=== PATIENT | male | born 1990 | race Caucasian/White ===

== ENCOUNTER 2017-01-09 17:18 | Emergency (ER) | payer OTHER ==
[2017-01-09] MEDS ORDERED: RX INFO: IV CONTRAST WAS GIVEN 1 EACH MISC MISCELLANE PRN ×2 (18:19→18:20)
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
[2017-01-09 18:33] VITALS: RESP 18
[2017-01-09 18:46] LABS: Basophils # (A) 0.1 k/uL (0-0.2); Basophils % (A) 1 %; CH 29.8; CHCM 35.2; Eosinophils # (A) 0.4 k/uL (0-0.7); Eosinophils % (A) 3 %; HCT 47.9 % (39.0-53.0); HDW 2.93; HGB 16.7 gm/dL (13.0-17.5); Luc # (Auto) 0.15; Luc % (Auto) 1; Lymphocytes % (A) 16 %; MCH 29.6 pg (25.0-35.0); MCHC 34.8 g/dL (31.0-37.0); MCV 85.1 fL (80.0-100.0); Mean Platelet Volume 7.6; Monocytes # (A) 0.5 k/uL (0-1.0); Monocytes % (A) 4 %; Neutrophils # (A) 9.1 k/uL (1.3-7.7); Neutrophils % (A) 75 %; RBC 5.63 m/uL (4.30-5.90); RDW 13.5 % (11.5-15.5); WBC 12.1 k/uL (3.8-10.6); WBC (Perox) 11.46
[2017-01-09 18:57] LABS: ALT 43 U/L (21-72); AST 29 U/L (17-59); Alcohol <10 mg/dL; Alkaline Phosphatase 79 U/L (38-126); Anion Gap 12 mmol/L; Blood Urea Nitrogen 5 mg/dL (9-20); Calcium 9.4 mg/dL (8.4-10.2); Carbon Dioxide 22 mmol/L (22-30); Chloride 108 mmol/L (98-107); Glucose 103 mg/dL (74-99); Non-African American GFR(MDRD) >60 (>60 ml/min/1.73 sqM); Potassium 3.6 mmol/L (3.5-5.1); Sodium 142 mmol/L (137-145); Total Bilirubin 1.4 mg/dL (0.2-1.3); Total Protein 7.8 g/dL (6.3-8.2)
[2017-01-09 18:59] LABS: Partial Thromboplastin Time 23.9 sec (22.0-30.0); Prothrombin Time 10.2 sec (9.0-12.0)
--- NOTE | 2017-01-09 19:26 | CT ---
EXAMINATION TYPE: CT brain chiquis prasad DATE OF EXAM: 01/09/2017 COMPARISON: NONE HISTORY: MCA yesterday. Head, neck and abdominal pain. CT DLP: 1500.7 mGycm, Automated exposure control for dose reduction was used. CONTRAST: Patient injected with 0 mL of Omnipaque 300. CT of the brain is performed utilizing 3 mm thick sections through the posterior fossa and 3 mm thick sections through the remaining calvarium. Study is performed within 24 hours of arrival to the hospital. No abnormal hyperdensity is present to suggest an acute intracranial hemorrhage. No mass lesion is evident. No acute infarcts are evident. Ventricles and sulci are appropriate for the patient age. Paranasal sinuses and mastoid air cells within the [id number] are clear. IMPRESSIONS: 1. No acute intracranial process. CT cervical spine. COMPARISON: None CT of the cervical spine is performed in the axial plane at 2 mm thick sections. Reconstructed image s in the coronal, and sagittal plane are reviewed on the computer. No acute fractures are evident. Vertebral body alignment is normal. Disc heights are preserved. Vertebral body heights are preserved. No spinal canal stenosis is evident. No neural foraminal stenosis is evident. IMPRESSIONS: 1. Normal CT cervical spine.
--- NOTE | 2017-01-09 19:30 | CT ---
EXAMINATION TYPE: CT ChestAbdPelvis w con DATE OF EXAM: 01/09/2017 INDICATION: [facility] yesterday. Head, neck and abdominal pain. COMPARISON: NONE CT DLP: 1500.7 mGycm CONTRAST: Performed without Oral Contrast and with IV Contrast, patient injected with 100 mL of Omnipaque 300. TECHNIQUE: Axial images at 5 mm thick sections. Reconstructed images in the coronal plane. Delayed images through the kidneys. FINDINGS: CT CHEST: Portion of the thyroid visualized is normal. No suspicious lung nodules or focal infiltrates are present. No pulmonary contusions are evident. No pneumothorax is evident. No obvious displaced rib fractures are identified. No enlarged mediastinal or hilar adenopathy is evident. The ascending aorta diameter at the level of the main pulmonary artery is 4.0 cm. The main pulmonary artery diameter at the bifurcation is 3.[address] ABDOMEN: Liver: Normal Spleen: Normal Pancreas: Normal Adrenal glands: The adrenal glands are normal. Gallbladder: Normal Kidneys: No masses are evident. No hydronephrosis is present. No cysts are present. No free fluid is within the abdomen. Aorta: Normal Inferior vena cava: Normal. CT PELVIS: Loops of bowel within the abdomen and pelvis are normal. Study is without oral contrast limiting evaluation. No free fluid is within the pelvis. Appendix: Normal as visualized. Urinary bladder: Normal. Genitourinary structures: Prostate is unremarkable. Osseous structures: No suspicious lytic or sclerotic lesions. IMPRESSIONS: 1. No acute posttraumatic changes CT chest abdomen pelvis
[2017-01-09 20:03] VITALS: BP 121/73; PULSE 76; TEMP 98.1
[2017-01-09 20:22] LABS: Appearance,Urine Clear (Clear); Bilirubin,Urine Negative (Negative); Glucose,Urine (UA) Negative (Negative); Ketones,Urine Negative (Negative); Leukocyte Esterase,Urine Negative (Negative); Nitrite,Urine Negative (Negative); Protein,Urine Negative (Negative); Specific Gravity,Urine 1.022 (1.001-1.035); UA Billing (MACRO vs. MICRO) CHEM
== END 2017-01-09 20:32 | disposition home or self-care (01) ==
LOC: EC 17:18
DX: S30.810A Abrasion of lower back and pelvis, initial encounter (principal); S20.412A Abrasion of left back wall of thorax, initial encounter; S09.90XA Unspecified injury of head, initial encounter; I71.2 Thoracic aortic aneurysm, without rupture; F17.200 Nicotine dependence, unspecified, uncomplicated; V86.09XA Driver of other special all-terrain or other off-road motor vehicle injured in traffic accident, initial encounter; Y92.410 Unspecified street and highway as the place of occurrence of the external cause
CPT/HCPCS: 36415; 80053; 85025; 85610; 85730; 81003; 80306; 80320; 72125; 70450; 71260; 74177; 99284; Q9967

== ENCOUNTER 2018-08-11 11:35 | Emergency (ER) | payer OTHER ==
[2018-08-11 11:50] VITALS: BP 130/86; PULSE 77; RESP 18; TEMP 98.2
[2018-08-11 14:14] LABS: Amphetamine Screen,Urine Not Detected (NotDetected); Barbiturate Screen,Urine Not Detected (NotDetected); Benzodiazepines Screen,Urine Not Detected (NotDetected); Cocaine Screen,Urine Not Detected (NotDetected); Methadone Screen, Urine Not Detected (NotDetected); Opiate Screen,Urine Not Detected (NotDetected); Oxycodone Screen, Urine Not Detected (NotDetected); Phencyclidine Screen,Urine Not Detected (NotDetected); Tricyclic Antidepressant,Urine Not Detected (NotDetected); Urn Cannabinoid Scrn Not Detected (NotDetected)
--- NOTE | 2018-08-11 14:42 | ED ---
Psych HPI - General Chief Complaint: Psychiatric Symptoms Stated Complaint: Petitioned Time Seen by Provider: 08/11/18 11:53 Source: patient, RN notes reviewed, old records reviewed Mode of arrival: ambulatory - History of Present Illness Initial Comments: This is a 27-year-old male the ER for evaluation by his psychiatry. Patient is brought in for evaluation of psychiatric brief illness. Patient denies recent drug abuse, is going to divorce did see with another man that causes him to be very emotional he did post on Facebook with no syncope was thinking about committing suicide or something of that nature. Patient resents for psychiatric evaluation currently states she is he is depressed he is angry but no longer suicidal patient was brought in by PD for evaluation MD Complaint: suicidal ideation, feels depressed -: unknown Associated Psychiatric Symptoms: depression History of same: Yes Quality: getting worse (Secondary to life stressor) Improves With: none Worsens With: none Context: significant life stressor Associated Symptoms: denies other symptoms Treatments Prior to Arrival: none If Self Harm: has plan - Related Data Home Medications Medication Instructions Recorded Confirmed Acetaminophen [Tylenol Extra 1,000 mg PO Q6H PRN 08/11/18 08/11/18 Strength] Allergies Allergy/AdvReac Type Severity Reaction Status Date / Time No Known Allergies Allergy Verified 08/11/18 12:28 Review of Systems ROS Statement: Those systems with pertinent positive or pertinent negative responses have been documented in the HPI. ROS Other: All systems not noted in ROS Statement are negative. Past Medical History Past Medical History: No Reported History Additional Past Medical History / Comment(s): AAA History of Any Multi-Drug Resistant Organisms: None Reported Past Surgical History: Appendectomy Past Psychological History: No Psychological Hx Reported Smoking Status: Current every day smoker Past Alcohol Use History: None Reported Past Drug Use History: None Reported General Exam Limitations: no limitations General appearance: alert, in no apparent distress, anxious Head exam: Present: atraumatic, normocephalic, normal inspection Eye exam: Present: normal appearance, PERRL, EOMI. Absent: scleral icterus, conjunctival injection, periorbital swelling ENT exam: Present: normal exam, mucous membranes moist Neck exam: Present: normal inspection. Absent: tenderness, meningismus, lymphadenopathy Respiratory exam: Present: normal lung sounds bilaterally. Absent: respiratory distress, wheezes, rales, rhonchi, stridor Cardiovascular Exam: Present: regular rate, normal rhythm, normal heart sounds. Absent: systolic murmur, diastolic murmur, rubs, gallop, clicks GI/Abdominal exam: Present: soft, normal bowel sounds. Absent: distended, tenderness, guarding, rebound, rigid Extremities exam: Present: normal inspection, full ROM, normal capillary refill. Absent: tenderness, pedal edema, joint swelling, calf tenderness Back exam: Present: normal inspection Neurological exam: Present: alert, oriented X3, CN II-XII intact Psychiatric exam: Present: normal affect, normal mood Skin exam: Present: warm, dry, intact, normal color. Absent: rash Course Vital Signs 08/11/18 11:47 Temperature 98.2 F Pulse Rate 77 Respiratory 18 Rate Blood Pressure 130/86 O2 Sat by Pulse 99 Oximetry - Reevaluation(s) Reevaluation #1: 08/11/18 14:41 Medically clear for psychiatric evaluation Reevaluation #2: 08/11/18 14:41 Patient was seen and evaluated with psychiatry here in the emergency room, patient does have CT brain, patient no longer wants to commit suicide. Medical Decision Making - Medical Decision Making 27 male to ER for evaluation. Patient presents ER for evaluation of psychiatric illness, patient is going through divorce and received saw his ex- with another man. This causes him to be suicidal want to kill himself. He does have mom at bedside is going to take home. Denies significant drug or alcohol abuse today. - Lab Data Lab Results 08/11/18 Range/Units 13:40 Urine Opiates Screen Not Detected (NotDetected) Ur Oxycodone Screen Not Detected (NotDetected) Urine Methadone Screen Not Detected (NotDetected) Ur Propoxyphene Screen Not Detected (NotDetected) Ur Barbiturates Screen Not Detected (NotDetected) U Tricyclic Antidepress Not Detected (NotDetected) Ur Phencyclidine Scrn Not Detected (NotDetected) Ur Amphetamines Screen Not Detected (NotDetected) U Methamphetamines Scrn Not Detected (NotDetected) U Benzodiazepines Scrn Not Detected (NotDetected) Urine Cocaine Screen Not Detected (NotDetected) U Marijuana (THC) Screen Not Detected (NotDetected) Disposition Clinical Impression: Adjustment reaction, Depression Disposition: HOME SELF-CARE Condition: Good Instructions: Grief and Loss (ED) Is patient prescribed a controlled substance at d/c from ED?: No Referrals: None,Stated [Primary Care Provider] - 1-2 days
== END 2018-08-11 14:59 | disposition home or self-care (01) ==
LOC: EC 11:35
DX: F32.9 Major depressive disorder, single episode, unspecified (principal); F43.20 Adjustment disorder, unspecified; F17.200 Nicotine dependence, unspecified, uncomplicated
CPT/HCPCS: 80306; 99285

== ENCOUNTER 2020-08-14 15:36 | Emergency (ER) | payer SELFPAY ==
[2020-08-14 15:50] VITALS: RESP 18; TEMP 98.3
--- NOTE | 2020-08-14 16:19 | ED ---
General Adult HPI - General Chief complaint: Urogenital Stated complaint: Groin injury Time Seen by Provider: 08/14/20 16:03 Source: patient Mode of arrival: ambulatory Limitations: no limitations - History of Present Illness Initial comments: Dictation was produced using [employer] dictation software. please excuse any grammatical, word or spelling errors. This patient was cared for during a federal and state declared state of emergency secondary to Covid 19 Chief Complaint: 29-year-old male presents today with testicular mass History of Present Illness: Patient is a 29-year-old male he has no significant past medical history. Patient states that over the last week he is noted he had inferior testicular masses. States that there is very unlikely possibility has sexually transmitted disease because he hasn't been sexually active recently and he only has one partner. Patient states she does have mild dysuria. States that the masses her bilateral and on the inferior aspect of the scrotum. Patient has no history of medical problems. Takes no medications on a regular basis. Patient has history of vasectomy several months ago. The ROS documented in this emergency department record has been reviewed and confirmed by me. Those systems with pertinent positive or negative responses have been documented in the HPI. All other systems are other negative and/or noncontributory. PHYSICAL EXAM: General Impression: Alert and oriented x3, not in acute distress HEENT: Normocephalic atraumatic, extra-ocular movements intact, pupils equal and reactive to light bilaterally, mucous membranes moist. Cardiovascular: Heart regular rate and rhythm Chest: Able to complete full sentences, no retractions, no tachypnea Abdomen: abdomen soft, non-tender, non-distended, no organomegaly Musculoskeletal: Pulses present and equal in all extremities, no peripheral edema Motor: no focal deficits noted Neurological: CN II-XII grossly intact, no focal motor or sensory deficits noted Skin: Intact with no visualized rashes Psych: Normal affect and mood : Scrotum is intact without any erythema or induration, there is a palpable 1 x 1 cm rubbery textured mass on the inferior portion of each testicle ED course: 29-year-old male presents with 7 days of suspicious testicular masses. Vital signs igns upon arrival are within acceptable limits. Scrotal ultrasound shows no evidence of testicular torsion or mass. He does have bilateral epididymal cysts. Cyst on the right measures 0.8 cm cyst on the left measures 1.4 cm. Urinalysis shows greater then 182 white blood cells, 52 red blood cells. Clinical presentation concerning for urinary tract infection. Pending STD panel. Scrotal ultrasound did not suggest epididymitis. Cyst may be secondary to vasectomy. Patient given 250 mg of IM ceftriaxone. He is also given a ten-day prescription for Levaquin. Given referral to urology. - Related Data Home Medications Medication Instructions Recorded Confirmed Acetaminophen [Tylenol Extra 1,000 mg PO Q6H PRN 08/11/18 08/11/18 Strength] Previous Rx's Medication Instructions Recorded Levofloxacin [Levaquin] 500 mg PO DAILY 10 Days #10 tab 08/14/20 Allergies Allergy/AdvReac Type Severity Reaction Status Date / Time No Known Allergies Allergy Verified 08/14/20 15:47 Review of Systems ROS Statement: Those systems with pertinent positive or pertinent negative responses have been documented in the HPI. ROS Other: All systems not noted in ROS Statement are negative. Past Medical History Past Medical History: No Reported History Additional Past Medical History / Comment(s): AAA History of Any Multi-Drug Resistant Organisms: None Reported Past Surgical History: Appendectomy Past Psychological History: No Psychological Hx Reported Smoking Status: Current every day smoker Past Alcohol Use History: None Reported Past Drug Use History: None Reported General Exam Limitations: no limitations Course Vital Signs 08/14/20 08/14/20 15:48 16:50 Temperature 98.3 F Pulse Rate 87 81 Respiratory 18 18 Rate Blood Pressure 137/89 127/89 O2 Sat by Pulse 99 98 Oximetry Medical Decision Making - Lab Data Lab Results 08/14/20 Range/Units 16:22 Urine Color Yellow Urine Appearance Cloudy (Clear) Urine pH 5.5 (5.0-8.0) Ur Specific [place] 1.023 (1.001-1.035) Urine Protein Trace H (Negative) Urine Glucose (UA) Negative (Negative) Urine Ketones Negative (Negative) Urine Blood Moderate H (Negative) Urine Nitrite Negative (Negative) Urine Bilirubin Negative (Negative) Urine Urobilinogen 2.0 (<2.0) mg/dL Ur Leukocyte Esterase Large H (Negative) Urine RBC 52 H (0-5) /hpf Urine WBC >182 H (0-5) /hpf Urine Bacteria Rare H (None) /hpf Urine Mucus Rare H (None) /hpf Disposition Clinical Impression: Scrotal mass, UTI (urinary tract infection) Disposition: HOME SELF-CARE Condition: Good Instructions (If sedation given, give patient instructions): Urinary Tract Infection in Men (ED) Prescriptions: Levofloxacin [Levaquin] 500 mg PO DAILY 10 Days #10 tab Is patient prescribed a controlled substance at d/c from ED?: No Referrals: Adonis Barclay MD [STAFF PHYSICIAN] - 1-2 days Time of Disposition: 17:14
[2020-08-14 16:40] LABS: Appearance,Urine Cloudy (Clear); Bacteria,Urine Rare /hpf; Bilirubin,Urine Negative (Negative); Blood,Urine Moderate (Negative); Color,Urine Yellow; Glucose,Urine (UA) Negative (Negative); Ketones,Urine Negative (Negative); Leukocyte Esterase,Urine Large (Negative); Mucus,Urine Rare /hpf; Nitrite,Urine Negative (Negative); PH, Urine 5.5 (5.0-8.0); Protein,Urine Trace (Negative); RBC,Urine 52 /hpf (0-5); Specific Gravity,Urine 1.023 (1.001-1.035); WBC,Urine >182 /hpf (0-5)
--- NOTE | 2020-08-14 17:01 | US ---
EXAMINATION TYPE: US scrotum with doppler. Grayscale and color Doppler Duplex imaging performed of sarah curiel scrotum. DATE OF EXAM: 08/14/2020 COMPARISON: NONE CLINICAL HISTORY: scrotal masses. Patient feels palpable lump bilaterally EXAM MEASUREMENTS: TESTICLES: Right Testicle: 4.5 x 2.0 x 2.9 cm Left Testicle: 4.8 x 2.1 x 2.9 cm EPIDIDYMIS HEAD: Right Epididymis: 1.2 cm Left Epididymis: 1.3 cm Doppler performed to assess for testicular vascularity; good bilateral color flow and waveforms are s een. There is no evidence of testicular torsion. Presence of hydroceles: Small hydroceles bilaterally. Presence of varicoceles: Yes, inferior to left testicle Bilateral epididymal cysts, left greater than right. Right epididymal cyst measures 0.8 cm. Left epid idymal cyst measures 1.4 cm IMPRESSION: No evidence of testicular torsion or mass. Small bilateral hydroceles. Small left-sided varicocele. Multiple epididymal cysts.
[2020-08-14] MEDS ORDERED: cefTRIAXone 250 MG VIAL IM STA (17:10)
[2020-08-14 17:35] VITALS: BP 136/94; PULSE 83
[2020-08-16 15:57] LABS: C. trachomatis,PCR Negative (Neg,Equiv); Chlamydia trachomatis Source Urine; N. gonorrhoeae,PCR Positive (Neg,Equiv); Neisseria Source Urine
== END 2020-08-14 17:36 | disposition home or self-care (01) ==
LOC: EC 15:36
DX: N39.0 Urinary tract infection, site not specified (principal); N50.3 Cyst of epididymis; N50.89 Other specified disorders of the male genital organs; F17.200 Nicotine dependence, unspecified, uncomplicated; Z98.52 Vasectomy status
CPT/HCPCS: 81001; 87491; 87591; 93975; 76870; 99284; 96372; J0696